=== PATIENT | female | born 1995 | race African-American/Black ===

== ENCOUNTER 2020-05-23 17:22 | Emergency (ER) | payer BC, SELFPAY ==
[2020-05-23 17:37] VITALS: BP 127/66; PULSE 90; RESP 18; TEMP 37.3; O2SAT 100
[2020-05-23 17:47] VITALS: BP 127/66; PULSE 90; RESP 18; TEMP 37.3; O2SAT 100
--- NOTE | 2020-05-23 17:52 | PC.NURSE ---
1748 in br to obtain ua spec.
--- NOTE | 2020-05-23 17:54 | ED.GENADULT ---
HPI - General Adult General Chief complaint: Unspecified Stated complaint: dizziness/vomiting/headache Time Seen by Provider: 05/23/20 17:55 Source: patient and RN notes reviewed Mode of arrival: ambulatory Limitations: no limitations History of Present Illness HPI narrative: 24-year-old female who presents to [facility] with complaints of 2 month duration of intermittent dizziness, headache and also some nausea and vomiting. Patient states that her last menses was on March 19 and has taken 2 home tests with 2 lines. Patient states that her last emesis was yesterday morning. Patient denies any symptoms at this time, states that she thinks she is drinking enough fluids and denies any caffeine intake. Patient denies any abnormal bleeding, no abdominal pain or any back discomfort. Patient states that she has a daughter that will be 3 in June and has had a miscarriage almost a year ago. MD complaint: thinks she is Onset (ago): month(s) (2) Pain Consistency: other (no pain) Associated symptoms: nausea/vomiting and other (dizziness and headache) Treatments prior to arrival: none Related Data Home Medications Medication Instructions Recorded Confirmed No Home Medications 05/23/20 05/23/20 Allergies Allergy/AdvReac Type Severity Reaction Status Date / Time No Known Allergies Allergy Unverified 11/12/16 11:32 Review of Systems Review of Systems: Narrative: CONSTITUTIONAL: Denies fever, chills, or sweats. EYES: Denies visual changes, redness, or discharge. ENT: Denies rhinorrhea, congestion, sore throat, or otalgia. CARDIOVASCULAR: Denies chest pain, palpitations, or edema. RESPIRATORY: Denies cough or dyspnea. GASTROINTESTINAL: Denies abdominal pain,positive for intermittent nausea, vomiting, no diarrhea. GENITOURINARY: Denies dysuria or hematuria. SKIN: Denies rash or itching. MUSCULOSKELETAL: Denies back pain, joint pain, or myalgia. NEUROLOGIC: Occasional mild headache,no numbness, or weakness,occasional weakness. PSYCHIATRIC: Denies anxiety or depression. All systems reviewed & are unremarkable except as noted in HPI and below PMFSH Past Medical History Medical History (Updated 05/23/20 @ 19:38 by Ramila Quigley NP) Asthma Miscarriage within last 12 months Nausea and vomiting in Surgical History Surgical History (Updated 05/23/20 @ 19:37 by Ramila Quigley NP) Hx of appendectomy Social History Social History (Updated 05/23/20 @ 19:38 by Ramila Quigley NP) Smoking status: Never smoker Alcohol intake: never Substance use: never Living arrangements: with family Gender identity (if verbalized by the patient): Female Comments At time of signature, agree with nursing past medical, surgical, social history. There is no relevant family history pertinent to the presenting complaint. Exam Narrative: Exam Narrative: GENERAL: Well-appearing, well-nourished, and in no acute distress. HEAD: Normocephalic, atraumatic. EYES: PERRLA and EOMI. ENT: Nares clear, no rhinorrhea or epistaxis. Mucous membranes moist. NECK: Supple.no lymphadenopathy CHEST: Clear to auscultation. No respiratory distress.SAO2 100% on room air HEART: Regular rate and rhythm. No murmur heard. Normal peripheral pulses. ABDOMEN: Soft, nontender, nondistended, normal active bowel sounds, denies any nausea or vomiting at this time. EXTREMITIES: Normal range of motion. No edema. SKIN: Warm, dry, no rash. NEURO: No focal deficits. Alert and oriented x3. Course Vital Signs Vital signs: Vital Signs Temperature 37.3 C 05/23/20 17:37 Pulse Rate 90 05/23/20 17:37 Respiratory Rate 18 05/23/20 17:37 Blood Pressure 127/66 05/23/20 17:37 Pulse Oximetry 100 05/23/20 17:37 Temperature 37.3 C 05/23/20 17:47 Pulse Rate 90 05/23/20 17:47 Respiratory Rate 18 05/23/20 17:47 Blood Pressure 127/66 05/23/20 17:47 Pulse Oximetry 100 05/23/20 17:47 Medical Decision Making
== END 2020-05-23 18:22 | disposition home or self-care (01) ==
PROVIDERS: Emergency Provider Registered Nurse
DX: O21.9 Vomiting of pregnancy, unspecified (principal); Z3A.09 9 weeks gestation of pregnancy
CPT/HCPCS: 81003; 81025; 99213; G0463

== ENCOUNTER 2024-05-06 12:07 | Emergency (ER) | payer MEDICAID, SELFPAY ==
[2024-05-06 12:20] VITALS: BP 107/59; PULSE 84; RESP 16; TEMP 36.9; O2SAT 99
--- NOTE | 2024-05-06 12:27 | ED.SKABFB ---
HPI - Skin/Abscess/Foreign Bdy General Chief complaint: Skin/Abscess/Foreign Body Stated complaint: bump under left arm,right side of nose Time Seen by Provider: 05/06/24 12:27 Source: patient, RN notes reviewed and old records reviewed Mode of arrival: ambulatory Limitations: no limitations History of Present Illness HPI narrative: Breast-feeding woman presents with complaints of painful lump under the left axilla. She reports that she noticed this a few days ago, it is getting bigger. She denies any injury or trauma. She does report low-grade fever yesterday. Says that she has been taking Tylenol with good relief Related Data Home Medications Medication Instructions Recorded Confirmed levonorgestrel 0.15 mg-ethinyl 1 tablet PO DAILY 05/06/24 05/06/24 estradiol 0.03 mg tablet (Altavera (28)) Allergies Allergy/AdvReac Type Severity Reaction Status Date / Time No Known Allergies Allergy Unverified 11/12/16 11:32 Review of Systems Review of Systems: All systems reviewed & are unremarkable except as noted in HPI and below Constitutional: Constitutional: Reports no additional constitutional complaints ENT: Reports system reviewed and no additional complaints, except as documented Cardiovascular: Cardiovascular: Reports no additional cardiovascular complaints Respiratory: Respiratory: Reports no additional respiratory complaints Gastrointestinal: Gastrointestinal: Reports no additional gastrointestinal complaints Integumentary/Breasts: Comments: Palpable lump left axilla PMFSH Past Medical History Medical History Asthma Miscarriage within last 12 months Nausea and vomiting in Surgical History Surgical History Hx of appendectomy Social History Social History Smoking status: Never smoker Alcohol intake: never Substance use: never Living arrangements: with family Gender identity (if verbalized by the patient): Female Comments At the time of my signature, I reviewed and agree with the nursing past medical, surgical, social, and family history. There is no relevant family history pertinent to the patient complaint. Exam Const: General: cooperative, no acute distress, alert and awake Orientation/consciousness: oriented to person, oriented to place and oriented to time HENMT: Head: normal to inspection Chest: Chest/axillae images: 1. Ping-pong ball size palpable mass, freely mobile, tender to palpation, deep Resp: Effort & Inspection: normal respiratory effort and able to speak in complete sentences Auscultation: clear to auscultation bilaterally, no crackles, no rales, no rhonchi and no wheezes Cardio: Palpation: normal PMI Rate: regular rate Rhythm: regular rhythm Heart sounds: S1 normal heart sound present and S2 normal heart sound present Neuro: General: oriented to person, oriented to place and oriented to time Cranial nerves: Yes CN's II-XII intact bilaterally Psych: Appearance: grossly normal Thought process: Normal thought process present Insight: Good insight present (Psych) Judgement: Good judgement present (Psych) Course Course Level of Care: Express Care Visit Vital Signs Vital signs: Vital Signs Temperature 98.4 F 05/06/24 12:20 Pulse Rate 84 05/06/24 12:20 Respiratory Rate 16 05/06/24 12:20 Blood Pressure 107/59 L 05/06/24 12:20 Pulse Oximetry 99 05/06/24 12:20 Oxygen Delivery Room Air 05/06/24 12:20 Temperature 98.4 F 05/06/24 12:20 Pulse Rate 84 05/06/24 12:20 Respiratory Rate 16 05/06/24 12:20 Blood Pressure 107/59 L 05/06/24 12:20 Pulse Oximetry 99 05/06/24 12:20 Oxygen Delivery Room Air 05/06/24 12:20 Reviewed MDM - Skin/Abscess/Foreign Bdy MDM Narrative Medical decision making narrative: Palpable mass to left axilla, difficult to discern whether lymph node or engorged mammary gland that has become infected. Freely mobile, deep to the surface. No sign of injury. Patient is still breast-feeding, breast is not red, swollen, tender. Continue breast-feeding, start p.o. antibiotics Discharge Plan Discharge Clinical Impression: Mastitis Patient Disposition: Home, Self-Care Condition: Stable Instructions: Antibiotic Form, Mastitis (ED) Additional Instructions: Take medication as prescribed, follow with primary care provider. Emergency department for new or worse symptoms Patient Language: Jordanian Prescriptions: New cephalexin 500 mg tablet 500 mg PO Q8H Qty: 30 0RF No Action levonorgestrel-ethinyl estrad [Altavera (28)] 0.15-0.03 mg tablet 1 tablet PO DAILY Follow-up/Referrals: PHYSICIAN,THERAPY AIDE [Primary Care Provider] - Time of Disposition: 12:46
== END 2024-05-06 13:00 | disposition home or self-care (01) ==
PROVIDERS: Emergency Provider Nurse Practitioner Family
DX: N61.0 Mastitis without abscess (principal); J45.909 Unspecified asthma, uncomplicated
CPT/HCPCS: 99213; G0463

== ENCOUNTER 2024-12-14 19:25 | Emergency (ER) | payer BC, SELFPAY ==
--- NOTE | 2024-12-14 19:31 | ED_ITS ---
HPI - Skin/Abscess/Foreign Bdy General Chief complaint: Skin/Abscess/Foreign Body Stated complaint: lumps under left armpit Time Seen by Provider: 12/14/24 19:40 Source: patient Mode of arrival: ambulatory Limitations: no limitations History of Present Illness HPI narrative: Jolene is a 29-year-old female patient presenting to the clinic today with complaints of painful lumps underneath bilateral armpits left worse than right. Also reports there is a small area to the top of the left breast. States that this has been going on for approximately 1 week. Has had history of lumps in her axilla in the past and has received antibiotics to treat this. Denies any known history of HS. No history of MRSA infections. Denies any fevers or chills. Area is not draining. Related Data Home Medications ?Medication ?Instructions ?Recorded ?Confirmed ?Last Taken ?Type levonorgestrel 0.15 mg-ethinyl 1 tablet PO DAILY 05/06/24 05/06/24 Unknown Hist ory estradiol 0.03 mg tablet (Altavera (28)) Allergies Allergy/AdvReac Type Severity Reaction Status Date / Time No Known Allergies Allergy Unverified 12/14/24 19:40 Review of Systems Review of Systems: Pertinent positives per HPI. Patient denies any fever, chills, rash, headache, visual changes, dizziness, cough, runny nose, sore throat, shortness of breath, chest pain, palpitations, nausea, vomiting, diarrhea, constipation, abdominal pain, or any urinary issues. PMFSH Past Medical History Medical History Asthma Miscarriage within last 12 months Nausea and vomiting in Surgical History Surgical History Hx of appendectomy Social History Social History Smoking status: Never smoker Alcohol intake: never Substance use: never Living arrangements: with family Gender identity (if verbalized by the patient): Female Comments At the time of my signature, I reviewed and agree with the nursing past medical, surgical, social, and family history. There is no relevant family history pertinent to the patient complaint. Exam Narrative: General: Well-developed, well nourished, in no apparent distress Head: Normocephalic, atraumatic. Cardio: Regular rate and rhythm, s1 and s2 normal, no murmur appreciated. Resp: Clear to auscultation bilaterally, no rhonchi, rales, wheezing or rubs. Integumentary: [place], warm, and dry, tender, 3 palpable tunnel like knots with very minimal fluctuance to left axilla and 2 small tunnel like knots with tenderness to the right axilla, one small papula area to the top of the left breast-ttp, no redness, no drainage, localized swelling, or erythema noted Course Course Emergency Course: Portions of this record may have been created with voice recognition software. Level of Care: Express Care Visit Vital Signs Vital signs: Vital signs reviewed MDM - Skin/Abscess/Foreign Bdy MDM Narrative Medical decision making narrative: At the time of visit patient is resting comfortably on the exam table. Patient appears to be nontoxic. Plan: I suspect patient has HS. Areas are not drainable at this time as there is very little fluctuance and no active pustules. Will place her on doxycycline and chlorhexidine wash. Recommend follow-up with title specialist and PCP as soon as possible. Supportive measures were discussed with the patient and they voiced understanding discharge instructions and agrees to treatment plan. Return precautions reviewed Differential Diagnosis Differential diagnosis: Likely abscess of skin or subcutaneous tissue, viral exanthem, dermatophytosis, urticaria, herpes zoster, allergic reaction to drug, cellulitis, eczema, insect bites, impetigo, contact dermatitis and other (HS) Discharge Plan Discharge Clinical Impression: Hidradenitis suppurativa Patient Disposition: Home Condition: Stable Instructions: Antibiotic Form, Hidradenitis Suppurativa (ED) Additional Instructions: Take doxycycline as prescribed Wash area with chlorhexidine daily May take Tylenol/Motrin as needed for pain Follow-up with primary care provider-call office on Tuesday to schedule appointment Follow-up with title specialist as discussed- Dr. Rolle- Address: [address] [place] [address] [address] [place], [place] [id number] Phone:? - call on Tuesday to schedule an appointment Patient Language: Turkish Prescriptions: New chlorhexidine gluconate 4 % liquid 1 applic topical ONCE 30 Days Qty: 473 0RF doxycycline monohydrate 100 mg capsule 100 mg PO BID 10 Days Qty: 20 0RF No Action levonorgestrel-ethinyl estrad [Altavera (28)] 0.15-0.03 mg tablet 1 tablet PO DAILY Follow-up/Referrals: PHYSICIAN,APPLICATION SUPPORT ANALYST [Primary Care Provider] - Raymond Bledsoe MD [Physician] - 3 Days (Call on Tuesday to schedule appointment) Time of Disposition: 19:37 Quality NIHSS Nursing Documentation ED NIHSS nursing documentation: reviewed/agree
[2024-12-14 19:41] VITALS: BP 131/81; PULSE 92; RESP 18; TEMP 36.6; O2SAT 98
== END 2024-12-14 19:50 | disposition home or self-care (01) ==
PROVIDERS: Emergency Provider Nurse Practitioner Family
DX: L73.2 Hidradenitis suppurativa (principal)
CPT/HCPCS: 99213; G0463